=== PATIENT | female | born 1985 | race Two or more races ===

== ENCOUNTER 2022-12-13 14:40 | Emergency (ER) | payer MEDICAID ==
[~2022-12-13] VITALS: Ht 152.4 cm; Wt 90.7 kg
[2022-12-13 15:04] VITALS: BP 151/82
--- NOTE | 2022-12-13 15:26 | NUR ---
bib friend had fall yesterday twisted her lt ankle now swollen and abraision rt knee swelling of lt knee. took ibuprofen 1tab. due to pain 05/18 came to [facility]. nursing care perform awaiting for md orders
--- NOTE | 2022-12-13 16:15 | NUR ---
[employer] AT BEDSIDE
[2022-12-13] MEDS ORDERED: IBUPROFEN 600 MG TABLET ONE (16:16)
[2022-12-13] MEDS ORDERED: IBUPROFEN 600 MG TABLET PO ONE (16:30)
[2022-12-13] MEDS ORDERED: IBUP-1955 PO (16:56)
== END 2022-12-13 17:15 | disposition home or self-care (01) ==
LOC: ER 14:47
DX: S93.402A Sprain of unspecified ligament of left ankle, initial encounter (principal); S80.02XA Contusion of left knee, initial encounter; W01.0XXA Fall on same level from slipping, tripping and stumbling without subsequent striking against object, initial encounter; Y93.01 Activity, walking, marching and hiking; Y92.89 Other specified places as the place of occurrence of the external cause; Y99.8 Other external cause status
CPT/HCPCS: 73564-TC; 73590-TC; 73610-TC